=== PATIENT | female | born 2000 | race Caucasian/White ===

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

== ENCOUNTER 2022-05-15 13:31 | Emergency (ER) | payer OTHER ==
[~2022-05-15] VITALS: Ht 160 cm; Wt 81.6 kg
[~2022-05-15 13:31] MED LIST changes: +CELECOXIB200 MG PO; +SKELAXIN800 MG PO
[2022-05-15] MEDS ORDERED: CIPRO500 MG PO (19:10)
[2022-05-15] MEDS ORDERED: PEPCID AC20 MG PO (19:10)
[2022-05-15] MEDS ORDERED: PYRIDIUM100 M1 PO (19:10)
[2022-05-15] MEDS ORDERED: PHENAZOPYRIDIN100 MG PO (19:10)
== END 2022-05-15 19:18 | disposition home or self-care (01) ==
LOC: ER 13:31
DX: N39.0 Urinary tract infection, site not specified (principal); K52.9 Noninfective gastroenteritis and colitis, unspecified

== ENCOUNTER 2023-01-24 10:05 | Emergency (ER) | payer OTHER ==
[~2023-01-24] VITALS: Ht 162.6 cm; Wt 86.2 kg
[~2023-01-24 10:05] MED LIST changes: +CIPRO500 MG PO; +PEPCID AC20 MG PO; +PHENAZOPYRIDIN100 MG PO; +PYRIDIUM100 M1 PO
== END 2023-01-24 13:09 | disposition home or self-care (01) ==
LOC: ER 10:05
DX: R53.81 Other malaise (principal); R05.9 Cough, unspecified; Z20.822 Contact with and (suspected) exposure to COVID-19

== ENCOUNTER 2023-02-16 10:59 | Emergency (ER) | payer OTHER ==
[~2023-02-16] VITALS: Ht 167.6 cm; Wt 90.7 kg
== END 2023-02-16 12:56 | disposition home or self-care (01) ==
LOC: ER 10:59
DX: S61.411A Laceration without foreign body of right hand, initial encounter (principal); W45.8XXA Other foreign body or object entering through skin, initial encounter; Y93.9 Activity, unspecified; Y92.9 Unspecified place or not applicable; Y99.9 Unspecified external cause status